=== PATIENT | female | born 1990 | race American Indian/Alaskan Native ===

== ENCOUNTER 2019-07-22 17:21 | Emergency (ER) | payer SELFPAY ==
--- NOTE | 2019-07-22 17:30 | Event Note ---
ED Screening Note Date of service: 07/22/19 Time: 17:29 ED Screening Note: 28 y/o female sent over from [facility] for possible ectopic . This initial assessment/diagnostic orders/clinical plan/treatment(s) is/are subject to change based on patients health status, clinical progression and re- assessment by fellow clinical providers in the ED. Further treatment and workup at subsequent clinical providers discretion. Patient/guardian urged not to elope from the ED as their condition may be serious if not clinically assessed and managed. Initial orders include:
[2019-07-22 18:02] LABS: Basophils % (Auto) 0.6 % (0.0-1.8); Eosinophils # (Auto) 0.1 K/mm3 (0.0-0.4); Eosinophils % (Auto) 1.4 % (0.0-4.3); Hematocrit 37.8 % (30.3-42.9); Hemoglobin 12.3 gm/dl (10.1-14.3); Lymphocytes # (Auto) 2.9 K/mm3 (1.2-5.4); Lymphocytes % (Auto) 38.5 % (13.4-35.0); Mean Corpuscular HGB Conc 33 % (30-34); Mean Corpuscular Volume 92 fl (79-97); Monocytes # (Auto) 0.9 K/mm3 (0.0-0.8); Monocytes % (Auto) 12.1 % (0.0-7.3); Platelet Count 205 K/mm3 (140-440); Red Blood Count 4.13 M/mm3 (3.65-5.03); Red Cell Distribution Width 13.8 % (13.2-15.2)
[2019-07-22 18:17] LABS: Alanine Aminotransferase 11 units/L (7-56); Albumin 4.1 g/dL (3.9-5); BUN/Creatinine Ratio 12; Blood Urea Nitrogen 6 mg/dL (7-17); Calcium 9.6 mg/dL (8.4-10.2); Hemolysis Index 14
[2019-07-22 18:25] LABS: INR 1.03 (0.87-1.13)
[2019-07-22 18:31] LABS: Bilirubin,Direct < 0.2 mg/dL (0-0.2)
--- NOTE | 2019-07-22 19:16 | Ultrasound Report ---
OB ultrasound FINDINGS: Viable intrauterine is seen with crown-rump length measurements corresponding to an MA of 6 weeks 3 days for an BRIGETTE of 03/13/2020. This correlates with the clinical dates. pole and yolk sac are seen. heart rate is 116 bpm. There is a small area of subchorionic hemorrhage only measuring about a centimeter. Complex area in the right adnexa may represent corpus luteum cyst with hemorrhage. There is minimal free fluid and a small simple left ovarian cyst measuring under a c entimeter. IMPRESSION: Viable IUP as described. Signer Name: David Jenkins MD Signed: 07/22/2019 7:12 PM Workstation Name: [id number]
--- NOTE | 2019-07-25 09:04 | Ultrasound Report ---
ULTRASOUND OB TRANSVAGINAL HISTORY: Possible ectopic TECHNIQUE: Transvaginal imaging. FINDINGS: This examination is just presented to me for interpretation due to technical factors at the hospital. Compared to the transabdominal examination performed the same day. The uterus measures 8.8 x 5.5 x 5.0 cm. No uterine mass is identified. An intrauterine gestational sac containing a small fe kathryn pole and yolk sac is identified. heart rate measures 116 bpm. [place]-rump length measures 0. 6 cm which correlates with a 6 week 3 day . A small subchorionic hemorrhage is identified. The right ovary measures 4.0 x 1.9 x 3.4 cm. A 2 cm complex area in the right ovary probably represen ts a corpus luteum cyst. The left ovary is unremarkable measuring 3.5 x 1.5 x 2.5 cm. No pelvic fluid collection. IMPRESSION: Viable single intrauterine as described. Small subchorionic hemorrhage. Signer Name: Bill Harry Jr, MD Signed: 07/25/2019 9:00 AM Workstation Name: [id number]
== END 2019-07-23 00:30 | disposition left against medical advice (07) ==
LOC: ED 17:21
DX: R10.2 Pelvic and perineal pain (principal); Z53.21 Procedure and treatment not carried out due to patient leaving prior to being seen by health care provider
CPT/HCPCS: 36415; 76801; 76817; 80048; 80076; 84702; 85025; 85610; 86850; 86900; 86901